=== PATIENT | female | born 1945 | race Native Hawaiian/Other Pacific Islander ===

== ENCOUNTER 2019-03-19 06:01 | Emergency (ER) | payer MEDICARE ==
[2019-03-19 06:11] VITALS: BMI 21.4
[2019-03-19 06:15] VITALS: RESP 18
--- NOTE | 2019-03-19 06:46 | ED PDOC ---
Arrival/HPI - General Chief Complaint: Chest Pain Time Seen by Provider: 03/19/19 06:41 - History of Present Illness Narrative History of Present Illness (Text): 03/19/19 06:44 73 yo female, hx of hypothyroid, presents with cp. pt states pain started this morning as "chest tightness". no fevers, no cough. [place] improving at this time. refuses asa. previous stress test in 2013 normal. Past Medical History - Infectious Disease Hx of Infectious Diseases: None - Tetanus Immunization Tetanus Immunization: Up to Date - Past Medical History Past Medical History: No Previous - Cardiac Hx Cardiac Disorders: No - Pulmonary Hx Respiratory Disorders: No - Neurological Hx Neurological Disorder: Yes (VERTIGO,) Hx Dizziness: Yes - HEENT Hx HEENT Disorder: No (WEARS RX GLASSES) Hx Glaucoma: Yes (LASER SURGERY) - Renal Hx Renal Disorder: Yes Hx Kidney Stones: Yes - Endocrine/Metabolic Hx Endocrine Disorders: Yes Hx Hypothyroidism: Yes Other/Comment: hypoglycemia. 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) - Psychiatric Hx Depression: No Hx Emotional Abuse: No Hx Physical Abuse: No Hx Substance Use: No - Surgical History Hx Hysterectomy: Yes Hx Tonsillectomy: Yes - Anesthesia Hx Anesthesia: Yes Hx Anesthesia Reactions: No Hx Malignant Hyperthermia: No - Suicidal Assessment Feels Threatened In Home Enviroment: No Family/Social History Family/Social History: Unknown Family HX Smoking Status: Never Smoked Hx Alcohol Use: No Hx Substance Use: No Hx Substance Use Treatment: No Allergies/Home Meds Allergies/Adverse Reactions: Allergies No Known Allergies Allergy (Verified 03/19/19 06:11) Home Medications: Home Meds Medication Instructions Recorded Confirmed Levothyroxine [Synthroid] 25 mcg PO DAILY 09/07/16 03/19/19 Omeprazole 40 mg PO DAILY 03/19/19 03/19/19 Vit C/E/Zn/Coppr/Lutein/Zeaxan 1 tab PO DAILY 03/19/19 03/19/19 [Preservision Areds 2 Softgel] Review of Systems - Review of Systems Constitutional: Normal Eyes: Normal ENT: Normal Respiratory: Normal Cardiovascular: Chest Pain Gastrointestinal: Normal Genitourinary Female: Normal Musculoskeletal: Normal Skin: Normal Neurological: Normal Endocrine: Normal Hemo/Lymphatic: Normal Psychiatric: Normal Physical Exam Vital Signs Pulse Resp BP Pulse Ox 03/19/19 06:14 69 18 123/58 L 100 Temperature: Afebrile Blood Pressure: Normal Pulse: Regular Respiratory Rate: Normal Appearance: Positive for: Well-Appearing, Non-Toxic, Comfortable Pain Distress: None Mental Status: Positive for: Alert and Oriented X 3 Finger Stick Blood Glucose: 122 - Systems Exam Head: Present: Atraumatic, Normocephalic Pupils: Present: PERRL Extroacular Muscles: Present: EOMI Conjunctiva: Present: Normal Mouth: Present: Moist Mucous Membranes Neck: Present: Normal Range of Motion Respiratory/Chest: Present: Clear to Auscultation, Good Air Exchange. No: Respiratory Distress, Accessory Muscle Use Cardiovascular: Present: Regular Rate and Rhythm, Normal S1, S2. No: Murmurs Abdomen: No: Tenderness, Distention, Peritoneal Signs Back: Present: Normal Inspection Upper Extremity: Present: Normal Inspection. No: Cyanosis, Edema Lower Extremity: Present: Normal Inspection. No: Edema Neurological: Present: GCS=15, CN II-XII Intact, Speech Normal Skin: Present: Warm, Dry, Normal Color. No: Rashes Psychiatric: Present: Alert, Oriented x 3, Normal Insight, Normal Concentration Medical Decision Making ED Course and Treatment: cp ro acs 03/19/19 06:46 cp ro acs ekg nsr 62 03/20/19 02:38 endorsed to day shift pending chem, cxr reassess final dispo - RAD Interpretation Radiology Orders: 03/19/19 06:42 CHEST PORTABLE [RAD] Stat Disposition/Present on Arrival - Present on Arrival Any Indicators Present on Arrival: No History of DVT/PE: No History of Uncontrolled Diabetes: No Urinary Catheter: No History of Decub. Ulcer: No History Surgical Site Infection Following: None - Disposition Have Diagnosis and Disposition been Completed?: Yes Diagnosis: Chest tightness Disposition: HOME/ ROUTINE Disposition Time: 07:00 Condition: IMPROVED Discharge Instructions (ExitCare): Chest Pain That Is Not Caused by the Heart (DC), Chest Pain (DC) Additional Instructions: SHANNAN PARDO, thank you for letting us take care of you today. Your provider was Marylu Baird MD and you were treated for LOW BLOOD SUGAR. The emergency medical care you received today was directed at your acute symptoms. If you were prescribed any medication, please fill it and take as directed. It may take several days for your symptoms to resolve. Return to the Emergency Department if your symptoms worsen, do not improve, or if you have any other problems. Please contact your doctor in 1-2 days for a follow up appointment. Bring any paperwork you were given at discharge with you along with any medications you are taking to your follow up visit. Our treatment cannot replace ongoing medical care by a primary care provider outside of the emergency department. Thank you for allowing the [facility] team to be part of your care today. Referrals: Zion Mayen MD [Primary Care Provider] - Follow up with primary Forms: [employer] ([place])
[2019-03-19 06:56] LABS: EOS # 0.1 (0.0-0.7); EOS % 1.8 % (1.5-5.0); LYMPH % 26.8 % (22.0-35.0); MEAN CELL VOLUME 88.8 fl (80.0-105.0); MEAN CORPUSCULAR HGB CONC 31.6 g/dl (31.0-37.0); MEAN PLATELET VOLUME 9.9 fl (7.0-11.0); MONO # 0.3 (0.1-0.6); MONO % 7.5 % (1.0-6.0); RBC 4.28 10^6/uL (3.5-6.1); RED CELL DISTRIBUTION WIDTH 12.4 % (11.5-14.5); WHITE BLOOD COUNT 3.9 10^3/uL (4.5-11.0)
[2019-03-19 07:06] LABS: INR 1.06; PARTIAL THROMBOPLASTIN TIME 33.1 Seconds (26.9-38.3)
[2019-03-19 07:11] LABS: ALB/GLOB RATIO 1.2 (1.1-1.8); ALBUMIN 3.4 g/dL (3.0-4.8); ALT/SGPT 28 U/L (7-56); AST/SGOT 38 U/L (14-36); BLOOD UREA NITROGEN 15 mg/dL (7-21); CALCIUM 8.7 mg/dL (8.4-10.5); GFR NON-AFRICAN AMERICAN > 60
--- NOTE | 2019-03-19 07:21 | ED PDOC ---
Physical Exam Vital Signs Reviewed: Yes Vital Signs Pulse Resp BP Pulse Ox 03/19/19 06:14 69 18 123/58 L 100 Blood Pressure: Normal Pulse: Regular Respiratory Rate: Normal Appearance: Positive for: Well-Appearing, Non-Toxic, Comfortable Pain Distress: None Mental Status: Positive for: Alert and Oriented X 3 Finger Stick Blood Glucose: 122 Medical Decision Making ED Course and Treatment: 03/19/19 07:19 Case signed out to me by Dr. Worrell. Pending labs / reassessment / final disposition. 03/19/19 09:05 Updated patient on results of Chest X-Ray (interpreted by me). On reassessment, patient informs symptoms are similar to GERD exacerbation and denies chest pain. Patient's last stress test done two weeks ago unremarkable. Patient taking omeprazole. Will test for troponin, if negative will discharge. 03/19/19 11:49 Heart Score History - 0 EKG - 0 Age - 2 Risk Factors - 0 Troponin - 0 Total: 2, Low Risk - Lab Interpretations Lab Results: PT 12.0 SECONDS (9.4-12.5) 03/19/19 06:35 INR 1.06 03/19/19 06:35 APTT 33.1 Seconds (26.9-38.3) 03/19/19 06:35 Total Bilirubin 0.3 mg/dL (0.2-1.3) 03/19/19 06:35 AST 38 U/L (14-36) H 03/19/19 06:35 ALT 28 U/L (7-56) 03/19/19 06:35 Alkaline Phosphatase 73 U/L (38-126) 03/19/19 06:35 Total Protein 6.3 g/dL (5.8-8.3) 03/19/19 06:35 Albumin 3.4 g/dL (3.0-4.8) 03/19/19 06:35 Globulin 2.9 gm/dL 03/19/19 06:35 Albumin/Globulin Ratio 1.2 (1.1-1.8) 03/19/19 06:35 - RAD Interpretation Radiology Orders: 03/19/19 06:42 CHEST PORTABLE [RAD] Stat - Scribe Statement The provider has reviewed the documentation as recorded by the Ciaraibamadou Edmonds All medical record entries made by the Scribe were at my direction and personally dictated by me. I have reviewed the chart and agree that the record accurately reflects my personal performance of the history, physical exam, medi elvia decision making, and the department course for this patient. I have also personally directed, reviewed, and agree with the discharge instructions and disposition. Disposition/Present on Arrival - Present on Arrival Any Indicators Present on Arrival: No History of DVT/PE: No History of Uncontrolled Diabetes: No Urinary Catheter: No History of Decub. Ulcer: No History Surgical Site Infection Following: None - Disposition Have Diagnosis and Disposition been Completed?: Yes Diagnosis: Chest tightness Disposition: HOME/ ROUTINE Disposition Time: 10:58 Patient Plan: Discharge Condition: IMPROVED Discharge Instructions (ExitCare): Chest Pain That Is Not Caused by the Heart (DC), Chest Pain (DC) Additional Instructions: SHANNAN PARDO, thank you for letting us take care of you today. Your provider was Marylu Baird MD and you were treated for LOW BLOOD SUGAR. The emergency medical care you received today was directed at your acute symptoms. If you were prescribed any medication, please fill it and take as directed. It may take several days for your symptoms to resolve. Return to the Emergency Department if your symptoms worsen, do not improve, or if you have any other problems. Please contact your doctor in 1-2 days for a follow up appointment. Bring any paperwork you were given at discharge with you along with any medications you are taking to your follow up visit. Our treatment cannot replace ongoing medical care by a primary care provider outside of the emergency department. Thank you for allowing the [facility] team to be part of your care today. Referrals: Zion Mayen MD [Primary Care Provider] - Follow up with primary Forms: [employer] (Wol[place])
[2019-03-19 07:22] LABS: TROPONIN I < 0.01 ng/mL
[2019-03-19 07:23] LABS: URINE APPEARANCE CLEAR (CLEAR); URINE BILIRUBIN NEGATIVE (NEGATIVE); URINE BLOOD NEGATIVE (NEGATIVE); URINE COLOR YELLOW (YELLOW); URINE GLUCOSE (UA) NEGATIVE (NEGATIVE); URINE LEUKOCYTE ESTERASE TRACE Leu/uL (NEGATIVE); URINE PROTEIN NEGATIVE mg/dL (<30 mg/dL); URINE UROBILINOGEN 0.2 E.U./dL (<1 E.U./dL)
[2019-03-19 07:26] LABS: URINE RBC 0 - 2 /hpf (0-2)
[2019-03-19 07:27] LABS: URINE AMORPHOUS SEDIMENT FEW /hpf; URINE BACTERIA MOD /hpf
[2019-03-19 08:18] VITALS: O2SAT 99
--- NOTE | 2019-03-19 09:25 | CARD ---
APPROVED REPORT Date of service: 03/19/2019 EKG Measurement Heart [id number] <Conclusion> Normal sinus rhythm Normal Electrocardiogram
[2019-03-19 11:15] VITALS: BP 106/68; PULSE 66; TEMP 97.9
--- NOTE | 2019-03-19 12:23 | RAD ---
Date of service: 03/19/2019 HISTORY: cp COMPARISON: 09/07/2016 TECHNIQUE: 1 view obtained. FINDINGS: LUNGS: No active pulmonary disease. PLEURA: No significant pleural effusion identified, no pneumothorax apparent. CARDIOVASCULAR: Aortic calcification Normal cardiac size. No pulmonary vascular congestion. OSSEOUS STRUCTURES: No significant abnormalities. VISUALIZED UPPER ABDOMEN: Normal. OTHER FINDINGS: None. IMPRESSION: No active disease.
--- NOTE | 2019-03-19 19:11 | CARD ---
APPROVED REPORT Date of service: 03/19/2019 EKG Measurement Heart [id number] <Conclusion> Normal sinus rhythm Possible Septal infarct, age undetermined CCR Abnormal ECG
== END 2019-03-19 11:15 | disposition home or self-care (01) ==
LOC: ED 06:01
DX: R07.89 Other chest pain (principal)